=== PATIENT | female | born 1950 | race Caucasian/White ===

== ENCOUNTER → 2018-07-01 | Outpatient (CLI) | payer MEDICARE ==
--- NOTE | 2018-07-02 17:11 | BD ---
EXAMINATION TYPE: Axial Bone Density DATE OF EXAM: 07/01/2018 COMPARISON: NONE CLINICAL HISTORY: Height: 5 FT 3 1/2 IN Weight: 178 FRAX RISK QUESTIONS: RISK FACTORS HISTORY OF: Family History of Osteoporosis: YES Active: YES Postmenopausal woman: AGE 51 Lost more than 2 inches in height since high school: YES MEDICATIONS: Prednisone or other steroids: EYE STEROID How Lon-4 X A WEEK Additional Medications: RESTASIS ,ATORVASTATIN, Additional History: EXAM MEASUREMENTS: Bone mineral densitometry was performed using the [employer] System. Bone mineral density as measured about the Lumbar spine is: ----- L1-L4(G/cm2): 1.085 T Score Values are as follows: ----- L2: -1.4 ----- L3: -0.8 ----- L4: -0.2 ----- L1-L4: -0.8 Bone mineral density has: DECREASED -15.9 % since study of: 1999 Bone mineral density about the R hip (g/cm2): 0.972 Bone mineral density about the L hip (g/cm2): 0.834 T Score values are as follows: -----R Neck: -0.5 -----L Neck: -1.5 -----R Total: -0.6 -----L Total: -1.3 Bone mineral density has: DECREASED -15.8 % since study of: 1999 IMPRESSION: Osteopenia (T Score between -2.5 and -1). There is slightly increased risk of fracture and the patient may be considered for treatment. Re-Screen 2-5 years. NOTE: T-SCORE=SD OF THE YOUNG ADULT MEAN.
--- NOTE | 2018-07-05 10:03 | MM ---
Reason for exam: screening (asymptomatic). Last mammogram was performed 1 year and 10 months ago. History: Patient is postmenopausal. Family history of breast cancer in maternal grandmother at age 70 and breast cancer in paternal grandmother. Benign cyst aspiration of the right breast, 1999. Benign cyst aspiration of the right breast, 1995. Took hormonal contraceptives for 5 years beginning at age 22. Physical Findings: A clinical breast exam by your physician is recommended on an annual basis and results should be correlated with mammographic findings. MG 3D Screening Mammo W/Cad Bilateral CC and MLO view(s) were taken. Prior study comparison: August 19, 2016, bilateral MG screening mammo w CAD. August 15, 2015, bilateral MG screening mammo w CAD. No significant changes when compared with prior studies. ASSESSMENT: Benign, BI-RAD 2 RECOMMENDATION: Routine screening mammogram of both breasts in 1 year.
== END | disposition home or self-care (01) ==
LOC: RADMAMWWP 14:25
PROVIDERS: ATTEND Obstetrics & Gynecology
DX: Z12.31 Encounter for screening mammogram for malignant neoplasm of breast (principal); M85.852 Other specified disorders of bone density and structure, left thigh; M85.88 Other specified disorders of bone density and structure, other site; Z80.3 Family history of malignant neoplasm of breast
CPT/HCPCS: 77063; 77067; 77080

== ENCOUNTER → 2019-07-15 | Outpatient (CLI) | payer MEDICARE ==
--- NOTE | 2019-07-19 08:49 | MM ---
Reason for exam: screening (asymptomatic). Last mammogram was performed 1 year ago. History: Patient is postmenopausal. Family history of breast cancer in maternal grandmother at age 70 and breast cancer in paternal grandmother. Benign cyst aspiration of the right breast, 1999. Benign cyst aspiration of the right breast, 1995. Took hormonal contraceptives for 5 years beginning at age 22. Physical Findings: A clinical breast exam by your physician is recommended on an annual basis and results should be correlated with mammographic findings. MG 3D Screening Mammo W/Cad Bilateral CC and MLO view(s) were taken. Prior study comparison: July 01, 2018, bilateral MG 3d screening mammo w/cad. August 19, 2016, bilateral MG screening mammo w CAD. There are scattered fibroglandular densities. No significant changes when compared with prior studies. ASSESSMENT: Benign, BI-RAD 2 RECOMMENDATION: Routine screening mammogram of both breasts in 1 year.
== END | disposition home or self-care (01) ==
LOC: RADMAMWWP 07:44
PROVIDERS: ATTEND Internal Medicine
DX: Z12.31 Encounter for screening mammogram for malignant neoplasm of breast (principal)
CPT/HCPCS: 77063; 77067

== ENCOUNTER → 2020-08-03 | Outpatient (CLI) | payer MEDICARE | END | disposition home or self-care (01) | LOC: LABPAT 15:32 | PROVIDERS: ATTEND Student in an Organized Health Care Education/Training Program | DX: Z01.818 Encounter for other preprocedural examination (principal) | CPT/HCPCS: U0003; C9803 ==

== ENCOUNTER 2020-08-09 07:27 | Day surgery (SDC) | payer MEDICARE ==
[2020-08-07 15:04] VITALS: BMI 29.9
[~2020-08-09 07:27] MED LIST: LACTATED RINGERS 1,000 ML IV SCH; LIDOCAINE 1% (10MG/ML) FOR IV START INTRADERMA PRN
[2020-08-09 07:56] VITALS: TEMP 97.8
[2020-08-09] MEDS ORDERED: LACTATED RINGERS 1,000 ML IV ONE (07:56)
[2020-08-09] MEDS ORDERED: LIDOCAINE 1% INJ 10MG/ML (20 ML MDV) ONE (08:40)
[2020-08-09] MEDS ORDERED: PROPOFOL 10 MG/ML 20 ML VIAL IV ONE (08:40)
--- NOTE | 2020-08-09 09:07 | P.OP ---
Date of Procedure: 08/09/20 Preoperative Diagnosis: GERD Screening Postoperative Diagnosis: Small hiatal hernia esophagitis ascending colon polyp diverticulosis Procedure(s) Performed: EGD with biopsy and colonoscopy with poylpectomy Anesthesia: MAC Surgeon: Ton Davis Estimated Blood Loss (ml): 1 Condition: stable Disposition: same day Description of Procedure: Patient is brought to the Endo suite placed left lateral decubitus position underwent sedation per department of anesthesia timeout performed correct patient correct procedure correct site was verified. Scope was passed through the oropharynx down the esophagus with ease under direct visualization through the stomach and first and second portion of duodenum were inspected no gross abnormalities are noted the scope was withdrawn to the stomach and antral biopsies taken to rule out H. pylori the scope was retroflexed and ample time was allowed for insufflation there was a small hiatal hernia noted no other abnormalities noted within the stomach the scope was withdrawn to the GE junction where there was esophagitis noted multiple biopsies of this were taken. Scope was then withdrawn back to the esophagus no other abnormalities are noted patient was then turned and rectal exam was performed no gross abnormalities noted scope was passed from the rectum to the cecum with ease and slowly withdrawn make sure to visualize all mayers of the colon on the way out there was a very small sessile polyp in the ascending colon removed via cold forceps polypectomy. Scope was then withdrawn again being sure to visualize all mayers of the colon on the way out there were scattered diverticuli noted within the sigmoid colon. No other gross abnormalities are noted. Patient will follow-up in 5 years for repeat colonoscopy pending pathology. She'll also follow-up in 3 months in the office regarding her GERD and esophagitis pending pathology..
[2020-08-09 09:25] VITALS: BP 126/83; PULSE 57; RESP 18
== END 2020-08-09 09:53 | disposition home or self-care (01) ==
LOC: ORWHC2ENDO 07:27
PROVIDERS: ATTEND Student in an Organized Health Care Education/Training Program
DX: Z12.11 Encounter for screening for malignant neoplasm of colon (principal); K63.5 Polyp of colon; K57.30 Diverticulosis of large intestine without perforation or abscess without bleeding; K21.00 Gastro-esophageal reflux disease with esophagitis, without bleeding; K29.50 Unspecified chronic gastritis without bleeding; K44.9 Diaphragmatic hernia without obstruction or gangrene; Z86.010 Personal history of colon polyps; E78.5 Hyperlipidemia, unspecified; Z96.1 Presence of intraocular lens; Z79.1 Long term (current) use of non-steroidal anti-inflammatories (NSAID); Z79.890 Hormone replacement therapy; Z79.899 Other long term (current) drug therapy; Z88.1 Allergy status to other antibiotic agents; Z88.2 Allergy status to sulfonamides; Z91.09 Other allergy status, other than to drugs and biological substances; Z91.018 Allergy to other foods; Z83.79 Family history of other diseases of the digestive system; Z82.5 Family history of asthma and other chronic lower respiratory diseases; Z82.49 Family history of ischemic heart disease and other diseases of the circulatory system; Z80.3 Family history of malignant neoplasm of breast; Z83.3 Family history of diabetes mellitus; Z90.89 Acquired absence of other organs; Z98.890 Other specified postprocedural states
CPT/HCPCS: 45380; 43239; J2001; J2704; 88305

== ENCOUNTER → 2020-09-25 | Outpatient (CLI) | payer MEDICARE ==
--- NOTE | 2020-09-25 11:28 | BD ---
EXAMINATION TYPE: Axial Bone Density DATE OF EXAM: 09/25/2020 COMPARISON: NONE CLINICAL HISTORY: Height: 64 IN Weight: 183 LBS RISK FACTORS HISTORY OF: Family History of Osteoporosis: MOTHER Active: YES Diet low in dairy products/other sources of calcium: YES Postmenopausal woman: AGE 48 MEDICATIONS: Additional Medications: CALCIUM, VIT D, RESTASIS,ATORVASTATIN,BIOTIN EXAM MEASUREMENTS: Bone mineral densitometry was performed using the [employer] System. Bone mineral density as measured about the Lumbar spine is: ----- L1-L4(G/cm2): 1.112 T Score Values are as follows: ----- L2: -0.9 ----- L3: -0.7 ----- L4: 0.1 ----- L1-L4: -0.6 Bone mineral density has: Increased 3.0% since study of: 07/01/2018 Bone mineral density about the R hip (g/cm2): 0.917 Bone mineral density about the L hip (g/cm2): 0.773 T Score values are as follows: -----R Neck: -0.9 -----L Neck: -1.9 -----R Total: -0.7 -----L Total: -1.6 Bone mineral density has: Decreased -2.9% since study of: 07/01/2018 IMPRESSION: Osteopenia NOTE: T-SCORE=SD OF THE YOUNG ADULT MEAN.
--- NOTE | 2020-09-26 10:38 | MM ---
Reason for exam: screening (asymptomatic). Last mammogram was performed 1 year and 2 months ago. History: Patient is postmenopausal. Family history of breast cancer in maternal grandmother at age 70 and breast cancer in paternal grandmother. Benign cyst aspiration of the right breast, 1999. Benign cyst aspiration of the right breast, 1995. Took hormonal contraceptives for 5 years beginning at age 22. Physical Findings: A clinical breast exam by your physician is recommended on an annual basis and results should be correlated with mammographic findings. MG 3D Screening Mammo W/Cad Bilateral CC and MLO view(s) were taken. Prior study comparison: July 15, 2019, bilateral MG 3d screening mammo w/cad. July 01, 2018, bilateral MG 3d screening mammo w/cad. The breast tissue is heterogeneously dense. This may lower the sensitivity of mammography. There is no discrete abnormality. No significant changes when compared with prior studies. ASSESSMENT: Negative, BI-RAD 1 RECOMMENDATION: Routine screening mammogram of both breasts in 1 year.
== END | disposition home or self-care (01) ==
LOC: RADBDWWP 09:31
PROVIDERS: ATTEND Obstetrics & Gynecology
DX: Z12.31 Encounter for screening mammogram for malignant neoplasm of breast (principal); M85.80 Other specified disorders of bone density and structure, unspecified site
CPT/HCPCS: 77063; 77067; 77080

== ENCOUNTER → 2021-11-04 | Outpatient (CLI) | payer MEDICARE ==
--- NOTE | 2021-11-06 09:35 | MM ---
Reason for exam: screening (asymptomatic). Last mammogram was performed 1 year and 1 month ago. History: Patient is postmenopausal. Family history of breast cancer in maternal grandmother at age 70 and breast cancer in paternal grandmother. Benign cyst aspiration of the right breast, 1999. Benign cyst aspiration of the right breast, 1995. Took hormonal contraceptives for 5 years beginning at age 22. Physical Findings: A clinical breast exam by your physician is recommended on an annual basis and results should be correlated with mammographic findings. MG 3D Screening Mammo W/Cad Bilateral CC and MLO view(s) were taken. Prior study comparison: September 25, 2020, bilateral MG 3d screening mammo w/cad. July 15, 2019, bilateral MG 3d screening mammo w/cad. There are scattered fibroglandular densities. No significant changes when compared with prior studies. ASSESSMENT: Negative, BI-RAD 1 RECOMMENDATION: Routine screening mammogram of both breasts in 1 year.
== END | disposition home or self-care (01) ==
LOC: RADMAMWWP 14:47
PROVIDERS: ATTEND Obstetrics & Gynecology
DX: Z12.31 Encounter for screening mammogram for malignant neoplasm of breast (principal); Z78.0 Asymptomatic menopausal state; Z80.3 Family history of malignant neoplasm of breast
CPT/HCPCS: 77063; 77067

== ENCOUNTER → 2022-01-31 | Outpatient (CLI) | payer MEDICARE | END | disposition home or self-care (01) | LOC: LABWHC1 15:12 | PROVIDERS: ATTEND Ophthalmology | DX: Z20.822 Contact with and (suspected) exposure to COVID-19 (principal); H53.452 Other localized visual field defect, left eye | CPT/HCPCS: U0003; U0005 ==

== ENCOUNTER → 2022-08-14 | Outpatient (CLI) | payer MEDICARE ==
--- NOTE | 2022-08-14 12:05 | CA ---
Exercise Stress Test Report Name: Anne Perera Exam Date: 08/14/2022 10:24 Exam Location: [facility] Ht (in): 65 Wt (lb): 175 BSA: 1.87 Ordering Phys: Jared Junior MD Referring Phys: ROSA,, Technologist: Rosa Isela Diaz RDCS Age: 71 Gender: F : 1950 Procedure CPT: Indications: R07.9 CHEST PAIN ICD-10 Codes: Patient History: cp, chol, fam hx Medications: Meds past 24 hrs: Pretest Chest Pain: STRESS TEST Neal Protocol Exercise Duration (min:sec): 07:[address] Depressions (mm): Angina Score: Mcdowell Score: Resting HR (bpm): 72 Peak HR (bpm): 144 Resting BP (mmHg): 124 / 82 Peak BP (mmHg): 201 / 93 MPHR: 150 Target HR: 128 % MPHR: 96 METS: 8.9 Total Dose: Peak Dose: Atropine: Double Product: 86358 BP Response: Stress Termination: Stress Symptoms: Stress Summary: ECG ANALYSIS Resting ECG: Stress ECG: CONCLUSIONS Excellent exercise tolerance Normal EKG in response to exercise Dr. Jalil Weinberg MD (Electronically Signed) Final Date: 14 August 2022 12:04
--- NOTE | 2022-08-14 12:51 | NM ---
EXAMINATION TYPE: NM stress cardiolite complete DATE OF EXAM: 08/14/2022 COMPARISON: NONE HISTORY: Chest pain TECHNIQUE: After the intravenous administration of 9.7 mCi Tc 99m Sestamibi - Rest images obtained 4 5 minutes post injection. The patient exercised using a ANGELIQUE protocol and 1 minute prior to peak e xercise was injected with 24.4 mCi Tc 99m Sestamibi - Stress images obtained 45 minutes post injectio n. FINDINGS: Targeted heart rate was achieved during performance of the study. Review of stress and rest SPECT óscar ges demonstrates no distinct perfusion abnormality. Gated analysis shows normal wall motion with an estimated left ventricular ejection fraction of 76 %. IMPRESSION: No scintigraphic evidence for reversible ischemia
== END | disposition home or self-care (01) ==
LOC: RADNMMAIN 08:31
PROVIDERS: ATTEND Family Medicine
DX: R07.9 Chest pain, unspecified (principal); E78.5 Hyperlipidemia, unspecified
CPT/HCPCS: 93017; 78452; A9500

== ENCOUNTER → 2022-11-13 | Outpatient (CLI) | payer MEDICARE ==
--- NOTE | 2022-11-14 08:59 | MM ---
Reason for Exam: Screening (asymptomatic). Last screening mammogram was performed 12 month(s) ago. Patient History: Menarche at age 15. First Full-Term at age 28. Postmenopausal. Hormonal Contraceptives for 5 years from age 22 until age 27. 1999, Benign Cyst Aspiration on the right side. 1995, Benign Cyst Aspiration on the right side. Paternal grandmother had breast cancer, age 70. Maternal grandmother had breast cancer, age 70. Risk Values: Marilyn 5 year model risk: 1.8%. NCI Lifetime model risk: 4.9%. Prior Study Comparison: 07/15/2019 Bilateral Screening Mammogram, [facility]. 09/25/2020 Bilateral Screening Mammogram, [facility]. 11/04/2021 Bilateral Screening Mammogram, [facility]. Tissue Density: The breast tissue is heterogeneously dense. This may lower the sensitivity of mammography. Findings: Analyzed By CAD. There is no suspicious group of microcalcifications or new suspicious mass in either breast. Overall Assessment: Negative, BI-RAD 1 Management: Screening Mammogram of both breasts in 1 year. A clinical breast exam by your physician is recommended on an annual basis and results should be correlated with mammographic findings. Electronically signed and approved by: Alverto Miller D.O.
== END | disposition home or self-care (01) ==
LOC: RADMAMWWP 10:13
PROVIDERS: ATTEND Family Medicine
DX: Z12.31 Encounter for screening mammogram for malignant neoplasm of breast (principal); Z80.3 Family history of malignant neoplasm of breast; Z78.0 Asymptomatic menopausal state; Z98.890 Other specified postprocedural states
CPT/HCPCS: 77063; 77067

== ENCOUNTER → 2023-11-30 | Outpatient (CLI) | payer MEDICARE ==
--- NOTE | 2023-12-01 12:48 | MM ---
Reason for Exam: Screening (asymptomatic). Last mammogram was performed 1 year(s) and 1 month(s) ago. Patient History: Menarche at age 15. First Full-Term at age 28. Postmenopausal. Currently using Estrogen. 1999, Benign Cyst Aspiration on the right side. 1995, Benign Cyst Aspiration on the right side. Paternal grandmother had breast cancer, age 70. Maternal grandmother had breast cancer, age 70. Risk Values: Marilyn 5 year model risk: 1.8%. NCI Lifetime model risk: 4.6%. Prior Study Comparison: 09/25/2020 Bilateral Screening Mammogram, [facility]. 11/04/2021 Bilateral Screening Mammogram, [facility]. 11/13/2022 Bilateral MG 3D screening mammo w/cad, [facility]. Tissue Density: The breasts are heterogeneously dense, which may obscure small masses. Findings: Analyzed By CAD. There is no suspicious group of microcalcifications or new suspicious mass in either breast. Overall Assessment: Benign, BI-RAD 2 Management: Screening Mammogram of both breasts in 1 year. . Patient should continue monthly self-breast exams. A clinical breast exam by your physician is recommended on an annual basis. This exam should not preclude additional follow-up of suspicious palpable abnormalities. Note on Marilyn scores and lifetime risk: 1. A Marilyn score greater than 3% is considered moderate risk. If this is the case, consider specialist referral to assess eligibility for a risk reducing agent. 2. If overall lifetime risk for the development of breast cancer is 20% or higher, the patient may qualify for future screening with alternating mammogram and breast MRI. Electronically signed and approved by: Oskar Vogel M.D. Radiologis
== END | disposition home or self-care (01) ==
LOC: RADMAMWWP 10:48
PROVIDERS: ATTEND Family Medicine
DX: Z12.31 Encounter for screening mammogram for malignant neoplasm of breast (principal); Z78.0 Asymptomatic menopausal state; Z80.3 Family history of malignant neoplasm of breast
CPT/HCPCS: 77063; 77067

== ENCOUNTER → 2023-12-04 | Outpatient (CLI) | payer MEDICARE ==
[2023-12-04 13:08] LABS: African American GFR (CKD) >90 (>60 ml/min/1.73 sqM); Blood Urea Nitrogen 13 mg/dL (7-17); Non-African American GFR(CKD) >90 (>60 ml/min/1.73 sqM)
--- NOTE | 2023-12-04 14:07 | CT ---
EXAMINATION TYPE: CT abdomen pelvis w con DATE OF EXAM: 12/04/2023 COMPARISON: None HISTORY: abdominal pain, diverticulosis CT DLP: 1349 mGycm Automated exposure control for dose reduction was used. TECHNIQUE: Helical acquisition of images was performed from the lung bases through the pelvis. CONTRAST: Performed with Oral Contrast and with IV Contrast, patient injected with 100 mL of Isovue 300. FINDINGS: The lung bases are clear. The gallbladder is normal without distention, wall thickening, pericholecystic fluid or gallstones. T here is no biliary ductal dilatation. There is no focal mass or organomegaly involving the liver, pancreas, spleen or adrenal glands. There is no solid renal mass or hydronephrosis and there is homogeneous contrast enhancement of the r enal parenchyma. There is a simple cortical cyst in the lower pole of the right kidney. The caliber the abdominal aorta is normal is no retroperitoneal adenopathy or hemorrhage. The bowel loops are normal in caliber and there is no evidence of dilatation or obstruction. No infla mmatory changes are identified in the bowel wall or mesentery. There is mild diverticulosis of the si gmoid colon without CT evidence of diverticulitis. There is no free intraperitoneal air or fluid. No pelvic mass, free fluid, abscess or adenopathy. The osseous structures and soft tissues are intact. IMPRESSION: Mild distal colon diverticulosis without CT evidence of diverticulitis. No other significant abnormal ity seen.
== END | disposition home or self-care (01) ==
LOC: RADCTMAIN 12:27
PROVIDERS: ATTEND Family Medicine
DX: K57.30 Diverticulosis of large intestine without perforation or abscess without bleeding (principal); K21.9 Gastro-esophageal reflux disease without esophagitis
CPT/HCPCS: 82565; 84520; 74177; 36415; Q9967

== ENCOUNTER → 2024-12-22 | Outpatient (CLI) | payer MEDICARE ==
--- NOTE | 2024-12-26 08:10 | MM ---
Reason for Exam: Screening (asymptomatic). Last mammogram was performed 1 year(s) and 1 month(s) ago. Patient History: Menarche at age 15. First Full-Term at age 28. Postmenopausal. Currently using Estrogen. 1999, Benign Cyst Aspiration on the right side. 1995, Benign Cyst Aspiration on the right side. Paternal grandmother had breast cancer, age 70. Maternal grandmother had breast cancer, age 70. Risk Values: Marilyn 5 year model risk: 1.8%. NCI Lifetime model risk: 4.4%. Prior Study Comparison: 11/04/2021 Bilateral Screening Mammogram, [facility]. 11/13/2022 Bilateral MG 3D screening mammo w/cad, [facility]. 11/30/2023 Bilateral MG 3D screening mammo w/cad, [facility]. Tissue Density: There are scattered areas of fibroglandular density. Findings: Analyzed By CAD. A few tiny benign-appearing round calcifications bilaterally are redemonstrated. There is no suspicious group of microcalcifications or new suspicious mass in either breast. Overall Assessment: Benign, BI-RAD 2 Management: Screening Mammogram of both breasts in 1 year. . Patient should continue monthly self-breast exams. A clinical breast exam by your physician is recommended on an annual basis. This exam should not preclude additional follow-up of suspicious palpable abnormalities. Note on Marilyn scores and lifetime risk: 1. A Marilyn score greater than 3% is considered moderate risk. If this is the case, consider specialist referral to assess eligibility for a risk reducing agent. 2. If overall lifetime risk for the development of breast cancer is 20% or higher, the patient may qualify for future screening with alternating mammogram and breast MRI. [facility], , 12/22/2024 12:01 PM. Electronically signed and approved by: Sincere Noriega M.D.
== END | disposition home or self-care (01) ==
LOC: RADMAMWWP 11:23
PROVIDERS: ATTEND Family Medicine
DX: Z12.31 Encounter for screening mammogram for malignant neoplasm of breast (principal); R92.323 Mammographic fibroglandular density, bilateral breasts; R92.1 Mammographic calcification found on diagnostic imaging of breast; Z78.0 Asymptomatic menopausal state; Z80.3 Family history of malignant neoplasm of breast
CPT/HCPCS: 77063; 77067